=== PATIENT | female | born 1985 | race Caucasian/White ===

== ENCOUNTER 2019-01-04 13:26 | Emergency (ER) | payer SELFPAY ==
[~2019-01-04] VITALS: Ht 157.5 cm; Wt 66.6 kg
[2019-01-04 13:35] VITALS: BP 122/87
[2019-01-04] MEDS ORDERED: orphenadrine citrate 60mg/2ml inj. IM ONE (13:45)
[2019-01-04] MEDS ORDERED: ketorolac tromethamine 15mg/ml inj. IM ONE (13:45)
[2019-01-04] MEDS ORDERED: IBUP-1985 PO (13:58)
[2019-01-04] MEDS ORDERED: METH-360 PO (13:58)
== END 2019-01-04 14:39 | disposition home or self-care (01) ==
LOC: ER 13:27
DX: S39.012A Strain of muscle, fascia and tendon of lower back, initial encounter (principal); M79.604 Pain in right leg; R22.31 Localized swelling, mass and lump, right upper limb; M54.42 Lumbago with sciatica, left side; M54.41 Lumbago with sciatica, right side; Z79.899 Other long term (current) drug therapy; X58.XXXA Exposure to other specified factors, initial encounter; Y93.89 Activity, other specified; Y92.89 Other specified places as the place of occurrence of the external cause; Y99.8 Other external cause status
CPT/HCPCS: 96372; 99283; J1885; J2360